=== PATIENT | female | born 1975 | race Two or more races ===

== ENCOUNTER 2016-03-19 09:19 | Emergency (ER) | payer MEDICAID ==
[~2016-03-19] VITALS: Ht 160 cm; Wt 68.0 kg
[2016-03-19 09:40] VITALS: BP 115/82
== END 2016-03-19 16:01 | disposition left against medical advice (07) ==
LOC: EDUNIT# 09:19 → ER 09:19
DX: M79.602 Pain in left arm (principal); M79.605 Pain in left leg; Z53.21 Procedure and treatment not carried out due to patient leaving prior to being seen by health care provider; W19.XXXA Unspecified fall, initial encounter; Y93.89 Activity, other specified; Y99.8 Other external cause status; Y92.89 Other specified places as the place of occurrence of the external cause

== ENCOUNTER 2016-06-11 18:17 | Emergency (ER) | payer MEDICAID ==
[~2016-06-11] VITALS: Ht 160 cm; Wt 61.2 kg
[2016-06-11 18:25] VITALS: BP 122/76
== END 2016-06-12 01:37 | disposition left against medical advice (07) ==
LOC: EDBD 18:17 → ER 18:28
DX: F41.9 Anxiety disorder, unspecified (principal); F10.10 Alcohol abuse, uncomplicated; Z53.21 Procedure and treatment not carried out due to patient leaving prior to being seen by health care provider
CPT/HCPCS: 93005

== ENCOUNTER 2016-07-15 12:23 | Emergency (ER) | payer MEDICAID ==
[~2016-07-15] VITALS: Ht 162.6 cm; Wt 61.2 kg
[2016-07-15 12:46] VITALS: BP 134/90
== END 2016-07-15 13:10 | disposition left against medical advice (07) ==
LOC: EDUNIT# 12:42 → ER 12:42
DX: F10.10 Alcohol abuse, uncomplicated (principal); Z53.21 Procedure and treatment not carried out due to patient leaving prior to being seen by health care provider